=== PATIENT | male | born 1970 | race Caucasian/White ===

== ENCOUNTER 2016-06-30 18:14 | Emergency (ER) | payer OTHER ==
[~2016-06-30] VITALS: Ht 152.4 cm; Wt 63.6 kg
[~2016-06-30 18:14] MED LIST: ACETAMINOPHEN325 M1 PO; ASPIRIN81 M2 PO; AUGMENTIN875 MG PO; BACTRIM,SEPT1 TABLET PO; CALMOSEPTINE O120 GM TP; CARBAMAZEPINE200 MG PO; CARDIZEM CD,CA240 MG PO; CARDIZEM CD240 MG PO; CHILD ASPIRIN81 M1 PO; Cardizem CD,Cartia XT,Tiazac PO; DAILY VITAMIN1 EAC4 PO; DIGOX125 MCG PO; DIGOXIN250 MCG PO; ECONAZOLE NITRA15 GM TP; ENEMA READY-TO133 ML PR; FEROSUL325 MG PO; FLEET ENEMA-AD118 ML PR; HALCION0.25 MG PO; IBUPROFEN400 MG PO; LEVAQUIN500 MG PO; LISINOPRIL10 MG PO; LOTRISONE15 GM TP; MIRALAX17 GM PO; MIRALAX255 GM PO; MOTRIN400 MG PO; ONE-A-DAY ESSE1 EAC1 PO; OYSTER SHELL 51 EACH PO; OYSTER SHELL W1 EACH PO; OYSTERCAL-D 501 EACH PO; PHILLIPS'400 MG/5 M PO; PREPARATION H C51 G1 PR; PREPARATION H O28 GM PR; Q-TUSSIN DM SY240 ML PO; RISAMINE OINTM113 GM TP; ROBITUSSIN DM118 ML PO; SENNA8.6 M1 PO; SENNA8.6 MG PO; TEGRETOL200 MG PO; TRIAMCINOLONE A15 G1 TP; TRIAMCINOLONE A15 G2 TP; TUCKS1 EAC1 TP; TYLENOL REGULA325 MG PO
[2016-06-30] MEDS ORDERED: KEFLEX500 MG PO (21:24)
[2016-06-30 21:48] LABS: ADD MIUA? YES; BILIRUBIN NEGATIVE; BLOOD LARGE; GLUCOSE (STRIP) NEGATIVE; KETONES TRACE; LEUKOCYTES NEGATIVE; NITRITE NEGATIVE; PROTEIN (STRIP) 30; SPECIFIC GRAVITY 1.021 (1.000-1.030)
[2016-06-30 21:50] LABS: COLOR RED ((YELLOW)); RED BLOOD CELLS TNTC /HPF (0-5); UCUL ADDED? YES
[2016-06-30 23:04] VITALS: BP 110/73
== END 2016-06-30 23:14 | disposition home or self-care (01) ==
LOC: EME 18:14
DX: N39.0 Urinary tract infection, site not specified (principal); I10 Essential (primary) hypertension; R56.9 Unspecified convulsions; F71 Moderate intellectual disabilities; Z79.82 Long term (current) use of aspirin
CPT/HCPCS: 80048; 81003; 83605; 85025; 87040; 87086; 99281; 99284; J0696

== ENCOUNTER → 2016-10-06 | Outpatient (CLI) | payer OTHER ==
[~2016-10-06] MED LIST changes: +KEFLEX500 MG PO
== END | disposition home or self-care (01) ==
DX: R13.10 Dysphagia, unspecified (principal); G40.909 Epilepsy, unspecified, not intractable, without status epilepticus
CPT/HCPCS: 92611 GN; G8996 GN; G8997 GN; G8998 GN

== ENCOUNTER 2016-12-21 07:24 | Emergency (ER) | payer OTHER ==
[~2016-12-21] VITALS: Ht 170.2 cm; Wt 61.2 kg
[2016-12-21] MEDS ORDERED: KEFLEX250 MG/5 M PO (08:03)
[2016-12-21 09:14] VITALS: BP 112/74
== END 2016-12-21 09:45 | disposition home or self-care (01) ==
LOC: EME 07:24
DX: S30.813A Abrasion of scrotum and testes, initial encounter (principal); X58.XXXA Exposure to other specified factors, initial encounter; Z79.82 Long term (current) use of aspirin; Z88.0 Allergy status to penicillin
CPT/HCPCS: 99281; 99284